=== PATIENT | female | born 1950 | race Caucasian/White ===

== ENCOUNTER → 2019-09-18 | Outpatient (CLI) | payer MEDICARE ==
--- NOTE | 2019-09-18 10:19 | Diagnostic Imaging Report ---
INDICATION: Postmenopausal female. COMPARISON: None FINDINGS: AP Spine L2-L4: [BMD (g/cm2): 0.705] [T-Score: -4.1] [Z-Score: -2.0] [BMD Previous: NA] [BMD % Change: NA] LT Hip Neck: [BMD (g/cm2): 0.793] [T-Score: -1.8] [Z-Score: 0.3] LT Hip Total: [BMD (g/cm2):0.763] [T-Score:-1.9] [Z-Score: -0.1] [BMD Previous: NA] [BMD % Change: NA] RT Hip Neck: [BMD (g/cm2):0.760] [T-Score:-2.0] [Z-Score:0.0] RT Hip Total: [BMD (g/cm2):0.719] [T-score:-2.3] [Z-Score:-0.5] [BMD Previous:NA] [BMD % Change:NA] *Indicates significant change from prior examination based on 95% confidence level. World Health Organization criteria for BMD interpretation classify patients as Normal (T-score at or above -1.0), Osteopenic (T-score between -1.0 and -2.5) or Osteoporotic (T-score at or below -2.5). LIMITATIONS AND MODIFICATION: None. FRACTURE RISK (FRAX SCORE): Not applicable IMPRESSION: 1. Osteoporosis. 2. Baseline examination. 3. See below National Osteoporosis Foundation guidelines on when to potentially initiate pharmacologic therapy. Based on the National Osteoporosis Foundation Guidelines, pharmacologic treatment should be initiated in any of the following, unless clinical conditions suggest otherwise: * Any patient with prior fragility fracture of the hip or vertebrae. A spine fracture indicates 5X risk for subsequent spine fracture and 2X risk for subsequent hip fracture. * Osteoporosis (T-score <-2.5). * Postmenopausal women and men age 50 and older with low bone mass/osteopenia (T-score between -1.0 and -2.5) by DXA and 10-year major osteoporotic fracture greater than 20% or a 10-year probability of hip fracture greater than 3%. These fracture risks are supplied above in the FRAX score, if applicable. * Clinician judgement and/or patient preferences may indicate treatment for people with 10-year fracture probabilities above or below these levels. Dictated by: Dictated on workstation # [id number]
== END ==
LOC: RAD 08:59
PROVIDERS: ATTEND Family Medicine
DX: M81.0 Age-related osteoporosis without current pathological fracture (principal); Z78.0 Asymptomatic menopausal state
CPT/HCPCS: 77080

== ENCOUNTER 2021-02-07 09:23 | Emergency (ER) | payer MEDICARE ==
[~2021-02-07] VITALS: Ht 160 cm; Wt 53.1 kg
--- OUTSIDE RECORDS SUMMARY | 2021-02-07 09:27 | XMS REPORT | Clinical Summary ---
Author Author [facility] Organization [facility] Address Unknown Phone Unavailable Care Team Providers Care Data Programmer Name Role Phone Rajiv Liu MD PCP Allergies Not on File Medications Not on file Active Problems Not on file Social History Date Tobacco Use Types Packs/Day Years Used Never Assessed Sex Assigned at Date Recorded Not on file Last Filed Vital Signs Not on file Plan of Treatment Health Maintenance Due Date Last Done Comments Advance Directive has 1950 been filed Hepatitis C Screen 1950 Td/Tdap# 1950 COVID-19 Vaccine (1) 1960 Colorectal Screening via 1998 Colonoscopy Mammogram Screening 1998 Zoster Vaccine# (1 of 2) 1998 Advance Directive 2013 Conversation Fall Risk Assessment # 2013 Osteoporosis Screening 2013 Patient Needs Advance 2013 Directive Pneumococcal Vaccine: 65+ 2013 Years (1 of 1 - PPSV23) Influenza Vaccine (#1) 2021 Results Not on filefrom Last 3 Months Advance Directives For more information, please contact: [phone] 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
--- OUTSIDE RECORDS SUMMARY | 2021-02-07 09:28 | XMS REPORT | Clinical Summary ---
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 If you d o not see the information that you expected, contact Release of Information in [facility] Information Management department at [phone] for further assistan ce in locating additional records.[facility] Allergies Comments Active Allergy Reactions Severity Noted Date Codeine HIVES Medium Polysorbate 80-Glycerin RASH Medium 2020 Seasonal Allergies SNEEZING Low 02/17/2018 Medications End Date Status Medication Sig Dispensed Refills Start Date Active flaxseed oil (OMEGA 3 PO) Take 1,300 mg 0 by mouth daily. Active levothyroxine (SYNTHROID) Take 25 mcg 0 25 mcg tablet by mouth daily 30 minutes before breakfast. Active cholecalciferol (VITAMIN Take 5,000 0 D-3) 125 mcg (5,000 unit) Units by tablet mouth daily. Active teriparatide (FORTEO) 20 Inject 20 mcg 0 mcg/dose - 600 mcg/2.4 mL under the pnij injection pen skin daily. Active diclofenac (VOLTAREN) 1 % Apply four g 300 g 1 topical gel topically to 0 affected area four times daily. Active vitamins, B complex tab Take 1 tablet 0 by mouth daily. Active acetaminophen (TYLENOL) Take 800 mg 0 500 mg capsule by mouth at bedtime daily. Max of 4,000 mg of acetaminophen in 24 hours. Active gabapentin (NEURONTIN) 300 mg in AM, 180 capsule 5 0 300 mg capsule 600 mg in the 1 afternoon, 600 mg before bed. Active nortriptyline (PAMELOR) Take two 180 capsule 0 10 mg capsule capsules by 1 mouth at bedtime daily. Active Problems Problem Noted Date Keratoconjunctivitis sicca 07/30/2020 Last Assessment & Plan: Formatting of this note might be differ ent from the original. Improved compared to last visit Cont ATs QID Consider restasis if worsens in future Meibomian gland dysfunction (MGD), bilateral, both up per and lower lids 07/30/2020 Last Assessment & Plan: Formatting of this note might be differ ent from the original. Perform lid scrubs twice daily. Apply warm water to a wash cloth and pl brittany over eyes for 1-2 minutes. Scrub gently along lash line on the top and bottom lids using baby shampoo or commercially available lid scrubs. Using your index finger, apply firm pre ssure for three seconds to three different spots along all four lids. Raynaud's phenomenon without gangrene 10/27/2018 Paresthesias 07/05/2018 Headache 02/17/2018 Overview: Formatting of this note might be differ ent from the original. MRI brain wo/w contrast 12/23/2017 (repo rt reviewed) without infarct, mass, hemorrhage, with stable linear gliosis R centrum semiovale from past study mentioned in 03/2013. MRA head 01/03/20 18 unremarkable, patent arteries L ast Assessment & Plan: Formatting of this note might be differ ent from the original. Likely nummular headache, now resolved. May be related to underlying neuropathy Osteoporosis 02/17/2018 Neuropathy 02/17/2018 Overview: Formatting of this note might be differ ent from the original. Onset October 2017, started with electrica l pain in legs up to knees and hands up to above elbows, numbness has not pr ogressed, but as of 12/29/2018 pt now complains subjective weakness and m uscle pain worse in AM, minimal large fiber symptoms or signs. Exam with patchy diminished sensation t o pinprick in lateral soles and medial calves, fingertip numbness, lost vibratory sense in MTP but intact proprioception, 2+ Achilles reflex Labs from OSH 12/2017 B12 640 Negative Lyme, tick-borne panel TSH 5.22 with fT4 1.17 (recently starte d synthroid) Fairly normal CBC and CMP (though MCV o f 96) ESR of 4 MRI C spine wo contrast 11/2017 with mod erate bilateral neural foraminal narrowing at C5-6 and C6-7 secondary to uncovertebral joint hypert rophy and facet arthropathy Skin biopsy done 04/12/2018 without small fiber findings EMG 07/05/18 at [facility] without neuropathic or myopathic findings Labs at [facility] [place]- 1:160 homogenous, 1:640 speckled Negative RF, SSA and SSB, BRITTANY, Aldolase , MMA, TYLER CRP 0.07, CRP 1, CK 79, Aldolase 47 anti-TPO, dsDNA, Sm/HARDBOARD SUPERVISOR, centromere, Lora -1, SCL70, HARDBOARD SUPERVISOR polymerase III, CCP; (-) Has had significant improvement with ga bapentin for neuropathic pain, but not in numbness, currently on 300-600-6 00 mg Nortriptyline 10 mg QHS for 1 week L ast Assessment & Plan: Formatting of this note might be differ ent from the original. - slow progression of peripheral neurop athy of unknown etiology, suspect familial given similar disease in her m other and sister- genetic testing panel for peripheral neuropathy was neg ative for any of known mutations -Compared to the last exam in 12/2019, s ensory exam has somewhat improved in vibratory sense although sensory exam i s not most reliable objective finding, it is reassuring that it has n ot progressed. - continue Gabapentin 300-600-600 mg; c an increase if pain becomes more intolerable - increase nortriptyline to 30 mg by 10 mg every week if she continues to have sleep issues and neuropathic pain - pt is to try melatonin 10 mg for bett er sleep -Continue vitamin B complex -Continue to avoid EtOH due to neurotox icity -Continue Biofreeze cream RLS (restless legs syndrome) 02/17/2018 Overview: Formatting of this note might be differ ent from the original. Secondary to neuropathy Surgical History Surgery Date Site/Laterality Comments TONSILLECTOMY HX CATARACT REMOVAL 04/11/2012 - 04/10/2013 HX RETINAL LASER Right 2x 2012 Medical History Medical History Date Comments Neuropathy Family History Medical History Relation Name Comments Alzheimer's Father Neuropathy Mother Cancer-Breast Paternal Grandmother Amblyopia Neg Hx Blindness Neg Hx Cataract Neg Hx Glaucoma Neg Hx Macular Degen Neg Hx Retinal Detachment Neg Hx Strabismus Neg Hx Relation Name Status Comments Father Mother Alive Paternal Grandmother Social History Date Tobacco Use Types Packs/Day Years Used Never Smoker Smokeless Tobacco: Never Used Comments Alcohol Use Standard Drinks/Week Yes 0 (1 standard drink = 0.6 o z pure alcohol) Sex Assigned at Date Recorded 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 Last Filed Vital Signs Reading Time Taken Comments Vital Sign 114/61 09/12/2020 2:08 PM CDT Blood Pressure 73 09/12/2020 2:08 PM CDT Pulse 36.3 C (97.4 F) 08/26/2020 2:19 PM CDT Temperature 14 05/14/2020 1:01 PM LOCKSTITCH CUP SETTER Respiratory Rate 100% 05/14/2020 1:01 PM LOCKSTITCH CUP SETTER RA Oxygen Saturation - - Inhaled Oxygen Concentration 54 kg (119 lb) 09/12/2020 2:08 PM CDT Weight 161.3 cm (5' 3.5") 08/26/2020 2:19 PM CDT Height 20.75 08/26/2020 2:19 PM CDT Body Mass Index Plan of Treatment Health Maintenance Due Date Last Done Comments MEDICARE ANNUAL WELLNESS 1950 VISIT DTAP/TDAP VACCINES ( - 1966 Tdap) HEPATITIS C SCREENING 1966 PHYSICAL (COMPREHENSIVE) 1966 EXAM BREAST CANCER SCREENING 1988 COLORECTAL CANCER 1998 SCREENING OSTEOPOROSIS 2013 SCREENING/MONITORING PNEUMONIA (PPSV23) 2013 VACCINE ( - PPSV23) INFLUENZA VACCINE 11/09/2020 SHINGLES RECOMBINANT Completed 03/20/2018, VACCINE 01/14/2018 Results Not on filefrom Last 3 Months Insurance Type Payer Benefit Subscriber ID Effective Phone Address Plan / Dates Group Medicare MEDICARE MEDICARE [id number] 2013-P PART A AND resent B PPO [facility] [id number] 2017-P SUPPLEMENT resent [id number] Advance Directives 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
--- NOTE | 2021-02-07 09:29 | ED EENT ---
History of Present Illness General Chief Complaint: Facial Problems Stated Complaint: FACE INJURY Source: patient, family Exam Limitations: no limitations History of Present Illness Date Seen by Provider: Feb 07, 2021 Time Seen by Provider: 09:27 Initial Comments 70yoF with past medical history of hypothyroidism, osteoporosis, and neuropathy coming in after she was walking her dog and tripped on side walk falling forward hitting her face on concrete. This happened about 30 minutes prior to arrival. She had a cut on her chin that she was able to control some bleeding with a towel someone provided to her. She feels like it hurts to open her jaw but she is still able to do it. She also feels like one of her teeth in the back could be chipped. She did not pass out, remembers everything, has been ambulatory since then. She is having constant throbbing pain in her chin that is moderate and nothing seems to make better or worse. Allergies and Home Medications Allergies Coded Allergies: codeine (Verified Allergy, Mild, 02/07/21) hives Patient Home Medication List Home Medication List Reviewed: Yes Review of Systems Review of Systems Constitutional: No chills, No fever Eyes: Denies Blurred Vision Ears: Denies Dizziness Nose: denies congestion Mouth: denies pain Throat: denies pain, denies swelling Respiratory: No cough, No short of breath Cardiovascular: No chest pain Gastrointestinal: No abdominal pain, No nausea, No vomiting Musculoskeletal: No joint pain Skin: No rash Neurological: No Symptoms Reported Hematologic/Lymphatic: No Symptoms Reported Immunological/Allergic: no symptoms reported All Other Systems Reviewed Negative Unless Noted: Yes Past Pgrqnuf-Mkpspf-Sawpib Hx Patient Social History Tobacco Use?: No Substance use?: No Alcohol Use?: Yes Alcohol Frequency: Rarely Past Medical History Surgeries: Yes (cataracts) Tonsillectomy Physical Exam Vital Signs Vital Signs - First Documented 02/07/21 09:36 Temp 36.4 Pulse 84 Resp 16 B/P (MAP) 134/79 (97) Pulse Ox 98 O2 Delivery Room Air Height, Weight, BMI Height: '" Weight: lbs. oz. kg; BMI Method: General Appearance: WD/WN, no apparent distress Eyes: bilateral eye normal inspection, bilateral eye PERRL, bilateral eye EOMI Ears: bilateral ear auricle normal Nose: normal inspection Mouth/Throat: normal mouth inspection, pharynx normal; No trismus; other (2.5cm laceration to her chin, class I chipped left maxillary molar) Neck: non-tender, full range of motion, supple, normal inspection Cardiovascular: regular rate, rhythm, no edema, no murmur Respiratory: chest non-tender, lungs clear, normal breath sounds, no respiratory distress, no accessory muscle use Gastrointestinal: normal bowel sounds, non tender, soft; No distended, No guarding, No rebound Neurologic/Psychiatric: no motor/sensory deficits, alert, normal mood/affect Skin: normal color, warm/dry Procedures/Interventions Wound Location: Face Other Wound Location jaw Wound Length (cm): 2.5 Wound's Depth, Shape: superficial Wound Explored: clean Irrigated w/ Saline (ccs): 400 Anesthesia: Lidocaine w/ Epi Volume Anesthetic (ccs): 2 Suture: Plain (fast absorbing gut) Suture Size: 5-0 Number of Sutures: 4 Progress Tolerated procedure well, hemostatic Progress/Results/Core Measures Results/Orders My Orders Orders - VERO EDWARDS MD Ct Head/Face/Cervical Wo (02/07/21 09:40) Hand 3 View Right (02/07/21 09:40) Acetaminophen Tablet (Tylenol Tablet) (02/07/21 09:45) Lidocaine/Epi 2% 1:100,000 (Xylocaine/Ep (02/07/21 09:45) Dipht,Pertuss(Acell),Tet Adult (Boostrix (02/07/21 10:45) Medications Given in ED Current Medications Medications Dose Ordered Sig/Millie Route Start Time Stop Time Status Last Admin Dose Admin Acetaminophen 1,000 mg ONCE ONCE PO 02/07/21 09:45 02/07/21 09:46 DC 02/07/21 09:45 1,000 MG Lidocaine/ Epinephrine 20 ml ONCE ONCE INJ 02/07/21 09:45 02/07/21 09:46 DC 02/07/21 09:47 20 ML Vital Signs/I&O 02/07/21 09:36 Temp 36.4 Pulse 84 Resp 16 B/P (MAP) 134/79 (97) Pulse Ox 98 O2 Delivery Room Air Progress Progress Note : Progress Note 70-year-old female with above history coming in after she tripped and fell onto her face hitting her jaw on concrete with a laceration. GCS 15, ABCs intact, vital stable on presentation. She does have a 2 and half centimeter laceration to her chin which was cleaned and closed with absorbable sutures. She tolerated this well. CT of the head, face, and cervical spine ordered and interpreted by me without any obvious bleeding or displaced fractures. X-ray of the right hand also ordered without any obvious fracture. She was given Tylenol for pain control. She should follow up with her dentist for the minimally chipped molar. Tetanus updated today. I believe she is stable for discharge with outpatient follow-up. She was sent home with strict return precautions Diagnostic Imaging Diagonstic Imaging: Xray, CT (head/face/c spine) Plain Films/CT/US/NM/MRI: hand Comments XR R hand ordered and interpreted by me is negative for fracture or dislocation CT head, cervical spine, and maxillary face negative for any acute fracture or dislocation, no acute bleeding on my interpretation, radiologist read is also negative for any acute findings Departure Impression Primary Impression: Fall Qualified Codes: W19.XXXA - Unspecified fall, initial encounter Additional Impressions: Chin laceration Qualified Codes: S01.81XA - Laceration without foreign body of other part of head, initial encounter Jaw pain Chipped tooth Qualified Codes: S02.5XXA - Fracture of tooth (traumatic), initial encounter for closed fracture Disposition: HOME, SELF-CARE Condition: Stable Departure-Patient Inst. Decision time for Depature: 10:40 Referrals: LEONARD VÁZQUEZ MD (PCP/Family) Primary Care Physician Patient Instructions: Laceration Repair Add. Discharge Instructions: You are seen in the emergency department after you fell and cut your chin. We used absorbable sutures which should absorb over the next week or so. Try not to allow them to get wet at all for the next 7 days at least, and after that it is okay. Take ibuprofen or Tylenol for pain or headache. Be sure to drink plenty of fluids if you are taking ibuprofen. Please follow-up with your dentist regarding your chipped teeth. If you have any concerns then please come back to the ER. VERO EDWARDS MD Feb 07, 2021 09:29
[2021-02-07 09:36] VITALS: BP 134/79
[2021-02-07] MEDS ORDERED: ACETAMINOPHEN 500 MG TAB (TYLENOL) PO ONE (09:45)
[2021-02-07] MEDS ORDERED: LIDOCAINE/EPI 2% 1:100,00 (XYLOCAINE) 20 ML VIAL INJ ONE (09:45)
--- NOTE | 2021-02-07 10:20 | Diagnostic Imaging Report ---
HISTORY: Fall on outstretched hand TECHNIQUE: 3 views of the right hand COMPARISON: None FINDINGS: No acute fracture or dislocation is seen in the right hand. Alignment appears normal. Joint spaces are preserved. No cortical erosions are seen. IMPRESSION: 1. No acute osseous abnormality is seen in the right hand. Dictated by: Dictated on workstation # [id number]
--- NOTE | 2021-02-07 10:34 | Diagnostic Imaging Report ---
PROCEDURE: CT head, face, and cervical spine without contrast. TECHNIQUE: Multiple contiguous axial images were obtained through the head, neck, and facial bones without the use of intravenous contrast. Sagittal and coronal reformations through the cervical spine and facial bones were also performed. Auto Exposure Controls were utilized during the CT exam to meet ALARA standards for radiation dose reduction. INDICATION: Fall, head, face, and neck injury COMPARISON: None FINDINGS: CT HEAD: The ventricles and cortical sulci are age-appropriate. There is no midline shift or mass effect. No acute intracranial hemorrhage is seen. There is no CT evidence of acute territorial ischemia. The calvarium appears intact. CT FACE: The pterygoid plates are intact. The zygomatic arches are intact. The mandible appears intact and normal in alignment. The maxillary sinuses demonstrate no fluid levels. No fluid levels are seen elsewhere in the paranasal sinuses. There are small mucous retention cysts in the right maxillary sinus. The orbits appear intact. The globes are intact. The nasal bones appear intact. CT CERVICAL SPINE: Alignment of the cervical spine appears normal. There are severe degenerative changes at C5-C6 and moderate degenerative changes at C6-C7. Mild degenerative changes are seen elsewhere in the cervical spine. No acute fracture is seen. No bony fragments or hyperdense fluid collections are seen in the spinal canal. There is scarring in the lung apices. Soft tissues about the cervical spine demonstrate no acute abnormality. IMPRESSION: 1. No acute intracranial hemorrhage or calvarium fracture. 2. No facial fracture is seen. 3. Degenerative change in the cervical spine with no fracture identified. Dictated by: Dictated on workstation # [id number]
[2021-02-07] MEDS ORDERED: TETANUS,DIPTH,PERTUSS P/F (BOOSTRIX) 0.5 ML VIAL IM ONE (10:45)
== END 2021-02-07 10:51 | disposition home or self-care (01) ==
LOC: EDUNIT# 09:23 → ER FS 09:24
DX: S02.5XXA Fracture of tooth (traumatic), initial encounter for closed fracture (principal); S01.81XA Laceration without foreign body of other part of head, initial encounter; Z23 Encounter for immunization; W01.198A Fall on same level from slipping, tripping and stumbling with subsequent striking against other object, initial encounter
CPT/HCPCS: 12011; 70450; 70486; 72125; 73130; 90715

== ENCOUNTER → 2022-03-29 | Outpatient (CLI) | payer MEDICARE ==
--- NOTE | 2022-03-29 15:58 | Diagnostic Imaging Report ---
INDICATION: Acute pain. COMPARISON: None available. TECHNIQUE: Three radiographs of the left knee dated 03/29/2022. FINDINGS: No acute fracture or dislocation. No destructive osseous process. Joint spaces are well-maintained for age. No significant osteophytosis. No joint effusion. No suspicious radiopaque foreign body. IMPRESSION: Unremarkable examination for age without acute osseous abnormality. Dictated by: Dictated on workstation # [id number]
== END ==
LOC: RAD FS 09:29
PROVIDERS: ATTEND Family Medicine
DX: M25.562 Pain in left knee (principal)
CPT/HCPCS: 73562